=== PATIENT | male | born 1965 | race Caucasian/White ===

== ENCOUNTER 2016-06-02 12:30 | Emergency (ER) | payer SELFPAY ==
[2016-06-02 13:37] LABS: BASOPHILS % (AUTO) 1 % (0-3); EOSINOPHILS % (AUTO) 1 % (0-9); HEMATOCRIT 46 % (39-53); MEAN CORPUSCULAR HGB CONC 34.4 gm/dl (32.0-36.0); MEAN CORPUSCULAR VOLUME 85 fL (80-100); MONOCYTES % (AUTO) 9.2 % (0-12); NEUTROPHILS % (AUTO) 68.8 % (37-80)
[2016-06-02 13:59] LABS: ALBUMIN 3.9 gm/dl (3.4-5.0); POTASSIUM 3.8 mMol/L (3.5-5.1); THYROID STIMULATING HORMONE 0.777 uIU/ml (0.358-3.740)
[2016-06-02 14:19] VITALS: BP 158/97; PULSE 74; RESP 16; TEMP 97.8; O2SAT 98
[2016-06-02 14:44] LABS: APPEARANCE,URINE CLEAR; BILIRUBIN,URINE NEGATIVE (NEGATIVE); COLOR,URINE YELLOW; GLUCOSE, URINE (UA) NEGATIVE (NEGATIVE); KETONES,URINE NEGATIVE (NEGATIVE); LEUKOCYTE ESTERASE ,URINE NEGATIVE (NEGATIVE); NITRATE,URINE NEGATIVE (NEGATIVE); OCCULT BLOOD,URINE NEGATIVE (NEG-TRACE); PH,URINE 6.5; RBC,URINE 0-1 (0-3AV/HPF); UROBILINOGEN,URINE NORMAL (0.2-1.0 EU); WBC,URINE NEG (0-5AV/HPF)
[2016-06-02 14:45] LABS: AMPHETAMINES NEGATIVE (NEGATIVE); METHADONE NEGATIVE (NEGATIVE); METHAMPHETAMINES NEGATIVE (NEGATIVE); OPIATES(OP13) NEGATIVE (NEGATIVE); OXYCODONE(OXY) NEGATIVE (NEGATIVE); PROPOXYPHENE(PPX) NEGATIVE (NEGATIVE); TRICYCLIC ANTIDEPRESSANTS NEGATIVE (NEGATIVE)
== END 2016-06-02 18:08 | disposition short-term general hospital (02) | DRG 880 ==
LOC: ED 12:30
DX: F99 Mental disorder, not otherwise specified (principal); Z86.59 Personal history of other mental and behavioral disorders
CPT/HCPCS: 36415; 80053; 80305; 80307; 81001; 84443; 85025; 99283